=== PATIENT | male | born 1970 | race Caucasian/White ===

== ENCOUNTER → 2023-01-11 | Outpatient (CLI) | payer BC, OTHER ==
[~2023-01-11] MED LIST: RT-ALBUTEROL SULF 2.5 MG/3 ML PRE-MIX VIAL INH ONE
== END ==
LOC: RT 13:45
PROVIDERS: ATTEND Nurse Practitioner Family
DX: Z77.090 Contact with and (suspected) exposure to asbestos (principal)
CPT/HCPCS: 94060; 94726; 94729